=== PATIENT | female | born 1980 | race Caucasian/White ===

== ENCOUNTER → 2025-01-22 11:23 | Outpatient (REF) | payer OTHER, SELFPAY | LOC: RCS 11:23 | PROVIDERS: ATTENDING PHYSICIAN Internal Medicine Cardiovascular Disease; FAMILY PHYSICIAN Student in an Organized Health Care Education/Training Program | DX: I27.20 Pulmonary hypertension, unspecified (principal) | CPT/HCPCS: 93306 ==